=== PATIENT | female | born 2000 | race Caucasian/White ===

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

== ENCOUNTER 2021-06-20 19:25 | Emergency (ER) | payer MEDICAID ==
[2021-06-20 19:33] VITALS: BP 153/80
[2021-06-20] MEDS: LIDOCAINE 1%-EPI 1:100000 20 ML MDV SUBQ STA (19:45)
--- NOTE | 2021-06-20 19:47 | ED Physician Documentation ---
PD HPI LOWER EXT INJURY - Stated complaint Stated Complaint: R BIG TOE PX - Chief complaint Chief Complaint: Ext Problem - History obtained from History obtained from: Patient (2 days of pain from Medial surface of right great toenail with infection.) Review of Systems Constitutional: denies: Fever, Chills Cardiac: reports: Reviewed and negative Respiratory: reports: Reviewed and negative PD PAST MEDICAL HISTORY - Past Medical History Cardiovascular: None Respiratory: None Neuro: None Endocrine/Autoimmune: None GI: None CAFETERIA COUNTER ATTENDANT: None : None HEENT: None Psych: None Musculoskeletal: None Derm: None - Past Surgical History Past Surgical History: No - Present Medications Home Medications: Ambulatory Orders Medication Instructions Recorded Confirmed cephALEXin [Keflex] 500 mg PO Q6H #28 cap 06/20/21 - Allergies Allergies/Adverse Reactions: Allergies Allergy/AdvReac Type Severity Reaction Status Date / Time No Known Drug Allergies Allergy Verified 06/20/21 19:33 - Social History Does the pt smoke?: No Smoking Status: Never smoker Does the pt drink ETOH?: No Does the pt have substance abuse?: No - Immunizations Immunizations are current?: Yes - POLST Patient has POLST: No PD ED PE NORMAL - Vitals Vital signs reviewed: Yes - General General: Alert and oriented X 3, No acute distress - Extremities Extremities: Other (The Medial part of the right great toenail is infected with cellulitis and purulent base. It is ingrown.) - Neuro Neuro: Alert and oriented X 3, Normal speech - Psych Psych: Normal mood, Normal affect Results - Vitals Vitals: Vital Signs - 24 hr 06/20/21 19:30 Temperature 36.8 C Heart Rate 117 H Respiratory 16 Rate Blood Pressure 153/80 H O2 Saturation 99 Oxygen O2 Source Room air Procedures - General procedure General procedure: Procedure notes: Excision of ingrown part of right great toenail. Digital block was done with 1% lidocaine in standard fashion with excellent anesthesia. In the Medial 1/5 of the right great toenail Was sharply excised and removed. The patient tolerated this well. Departure - Departure Disposition: 01 Home, Self Care Clinical Impression: Ingrown toenail of right foot Condition: Good Record reviewed to determine appropriate education?: Yes Instructions: ED Ingrown Toenail Excised Prescriptions: cephALEXin [Keflex] 500 mg PO Q6H #28 cap Comments: I sent your prescription electronically to [facility] [place]. Return for new or worsening symptoms.
[2021-06-20] MEDS: CEPHALEXIN 250 MG Prepack 8 CAP BOTTLE PO STA (19:51)
== END 2021-06-20 20:09 | disposition home or self-care (01) ==
LOC: ED 19:25
DX: L60.0 Ingrowing nail (principal)
CPT/HCPCS: 11750

== ENCOUNTER 2023-07-21 14:00 | Outpatient (CLI) | payer MEDICAID, OTHER ==
[2023-07-21 21:07] LABS: CHLAMYDIA TRACHOMATIS DNA NEGATIVE (NEGATIVE); NEISSERIA GONORRHOEAE DNA NEGATIVE (NEGATIVE)
[2023-07-21 22:39] LABS: BACTERIAL VAGINOSIS DNA NEGATIVE (NEGATIVE); CANDIDA GLABRATA DNA NEGATIVE (NEGATIVE); CANDIDA GROUP DNA NEGATIVE (NEGATIVE); CANDIDA KRUSEI DNA NEGATIVE (NEGATIVE); TRICHOMONAS VAGINALIS DNA NEGATIVE (NEGATIVE)
== END 2023-07-21 14:15 | disposition home or self-care (01) ==
LOC: LAB.N 14:00
PROVIDERS: ATTEND Physician Assistant Medical
DX: J02.9 Acute pharyngitis, unspecified (principal); Z11.3 Encounter for screening for infections with a predominantly sexual mode of transmission
CPT/HCPCS: 81514; 87491; 87591; 87661